=== PATIENT | female | born 1990 | race Caucasian/White ===

== ENCOUNTER 2021-12-29 12:00 | Outpatient (CLI) | payer OTHER, SELFPAY | END 2021-12-29 12:01 | disposition home or self-care (01) | LOC: SLEEP 12-30 12:31 | PROVIDERS: PCP Nurse Practitioner Family; Visit Provider Nurse Practitioner Family | DX: R06.83 Snoring (principal); R53.83 Other fatigue; G47.33 Obstructive sleep apnea (adult) (pediatric) | CPT/HCPCS: G0399 ==

== ENCOUNTER 2023-02-19 07:55 | Outpatient (CLI) | payer OTHER, SELFPAY ==
--- NOTE | 2023-02-19 08:05 | USR_ITS ---
PROCEDURE INFORMATION: Exam: US Abdomen, Limited; Right Upper Quadrant Exam date and time: 02/19/2023 8:23 AM Age: 32 years old Clinical indication: Abdominal pain TECHNIQUE: Imaging protocol: Real time ultrasound of the abdomen with image documentation. Limited exam focused on the right upper quadrant. COMPARISON: No relevant prior studies available. FINDINGS: Liver: Normal. No masses. Patent main portal vein with normal direction of flow. Gallbladder: Normal. No gallstones. There is no gallbladder wall thickening. Biliary ducts: Normal. No stones. No dilation. Pancreas: Visualized pancreas is unremarkable. Right kidney: Normal. No mass. No hydronephrosis. US/US abdomen limited [id number] IMPRESSION: No acute findings.
== END 2023-02-19 07:56 | disposition home or self-care (01) ==
LOC: RAD 07:55
PROVIDERS: PCP Nurse Practitioner Family; Visit Provider Nurse Practitioner Family
DX: R10.9 Unspecified abdominal pain (principal)
CPT/HCPCS: 76705